=== PATIENT | male | born 1995 | race African-American/Black ===

== ENCOUNTER 2017-09-22 17:25 | Emergency (ER) | payer BC ==
[~2017-09-22] VITALS: Ht 167.6 cm; Wt 59.0 kg
--- NOTE | 2017-09-22 17:45 | NUR ---
BBRA FROM HOME C/O SZ, ABRASION TO NOSE. PT STS HE HAS HX OF SZ BUT NOT TAKING MED FOR IT. PT AAOX3, VSS. DENIES SCHMITZ, DIZZINESS, N/V, CP, SOB NAD NOTED @ THIS TIME. RAILS UP & PADDED. WILL CONT TO MONITOR. FAMILY @ BS.
[2017-09-22 18:08] LABS: BASOPHILS # (AUTO) 0.1 /CMM (0.0-0.2); EOSINOPHILS % (AUTO) 1.2 % (0.0-6.0); HEMATOCRIT 45 % (39-51); LYMPHOCYTES # (AUTO) 1.3 /CMM (0.8-4.8); LYMPHOCYTES % (AUTO) 38.7 % (20.0-44.0); MEAN CORPUSCULAR HEMOGLOBIN 30 PG (26.0-33.0); MEAN CORPUSCULAR HGB CONC 33 g/dl (31.0-36.0); MEAN CORPUSCULAR VOLUME 91 fL (80-96); MONOCYTES # (AUTO) 0.5 /CMM (0.1-1.30); MONOCYTES % (AUTO) 13.5 % (2.0-12.0); NEUTROPHILS # (AUTO) 1.5 /CMM (1.8-8.9); NEUTROPHILS % (AUTO) 44.6 % (43.0-81.0); PLATELET COUNT (AUTO) 179 /CMM (150-450); RDW COEFFICIENT OF VARIATION 11.3 (11.5-15.0); RED BLOOD CELL COUNT(AUTO) 4.92 MIL/uL (4.5-6.0); WHITE BLOOD COUNT (AUTO) 3.4 K/uL (4.3-11.0)
[2017-09-22 18:20] LABS: CALCIUM, SERUM 8.9 mg/dL (8.5-10.1); CARBON DIOXIDE 31 mmol/L (21-32); CHLORIDE 103 mmol/L (98-107); GLUCOSE 106 mg/dL (74-106); POTASSIUM 4.1 mmol/L (3.5-5.1); SODIUM SERUM 139 mmol/L (136-145); UREA NITROGEN, BLOOD 9 mg/dL (7-18)
[2017-09-22 18:23] LABS: ALCOHOL, BLOOD < 3 mg/dL (0-0)
[2017-09-22 19:22] LABS: APPEARANCE,URINE Slightly Cloudy (CLEAR); BILIRUBIN,URINE Negative (NEGATIVE); BLOOD, URINE Negative Ery/uL (NEGATIVE); COLOR,URINE Yellow (YELLOW); KETONES,URINE Negative (NEGATIVE); LEUKOCYTE ESTERASE ,URINE Negative (NEGATIVE); NITRITE, URINE Negative (NEGATIVE); PH,URINE 8.5 (5.0-8.0); PROTEIN,URINE Negative (NEGATIVE); UGLUCOSE Negative (NEGATIVE); UROBILINOGEN,URINE 0.2 EU/dL (0.2)
[2017-09-22] MEDS: LEVETIRACETAM (500MG) 1,000 MG in IV NS 0.9% 100 ML IV SCH ×2 (19:40→21:13)
--- NOTE | 2017-09-22 19:41 | NUR ---
PT RESTING, VSS, NAD NOTED @ THIS TIME. MEDICATED PER PA'S ORDER. FAMILY @ BS.
--- NOTE | 2017-09-22 20:10 | NUR ---
KEPPRA 500 MG IV STARTED 1939, END TIME 2009
[2017-09-22 21:26] VITALS: BP 105/72
== END 2017-09-22 21:26 | disposition home or self-care (01) ==
LOC: ER 17:28
DX: R56.9 Unspecified convulsions (principal); S00.31XA Abrasion of nose, initial encounter; W18.39XA Other fall on same level, initial encounter; Y93.89 Activity, other specified; Y92.89 Other specified places as the place of occurrence of the external cause; Y99.8 Other external cause status
CPT/HCPCS: 36415; 80048; 80305; 81001; 85025; 93005; 96365; 99285; A4606; A6402; G0480; J1953; J7030; Z7610; 81000-TC